=== PATIENT | male | born 2000 | race Caucasian/White ===

== ENCOUNTER 2024-11-29 17:23 | Emergency (ER) | payer SELFPAY ==
[~2024-11-29] VITALS: Ht 195.6 cm; Wt 127.0 kg
[2024-11-29] MEDS ORDERED: SULFAMETHOXAZOLE W/TRIMETHOPRI 1 COMBO TAB PO ONE (22:30)
[2024-11-29] MEDS ORDERED: ONDANSETRON 4 MG/TAB ODT PO ONE (22:35)
[2024-11-29] MEDS ORDERED: LIDOCAINE W/ EPINEPHRINE 10 MG/ML INJ IJ ONE (22:35)
[2024-11-29] MEDS ORDERED: oxyCODONE 5MG/ ACETAMINOPHEN 325MG TAB PO ONE (22:35)
[2024-11-30] MEDS ORDERED: BACTRIM DS1 TAB PO (01:04)
[2024-11-30 01:52] VITALS: BP 134/83
[2024-12-03] MEDS ORDERED: PERCOCET 5/325M1 TAB PO (11:44)
== END 2024-11-30 01:52 | disposition home or self-care (01) | DRG 603 ==
LOC: ED 17:23
DX: L02.212 Cutaneous abscess of back [any part, except buttock and flank] (principal)